=== PATIENT | female | born 1960 | race Caucasian/White ===

== ENCOUNTER 2021-01-07 21:54 | Observation (INO) | payer SELFPAY ==
[2021-01-07 23:14] LABS: #Basophils 0.1 10x3/uL (0.0-0.2); #Eosinphils 0.2 10x3/uL (0.0-0.5); #Monocytes 0.9 10x3/uL (0.0-1.1); #Neutrophils 7.9 10x3/uL (1.5-8.4); %Basophils 0.5 % (0.0-2.0); %Lymphocytes 21.4 % (18.0-47.0); %Monocytes 7.6 % (0.0-10.0); %Neutrophils 68.1 % (40.0-75.0); Hemoglobin 9.2 g/dL (12.0-15.5); Mean Corpuscular HGB CONC 32.6 g/dL (32.0-36.0); Mean Corpuscular Hemoglobin 29.2 pg (27.0-33.0); Mean Corpuscular Volume 89.5 fl (81.6-98.3); Mean Platelet Volume 10.7 fl (7.4-10.4); Platelet Count 322 10x3/uL (150-450); RBC Distribution Width 15.1 % (11.5-14.5); Red Blood Cell (RBC) Count 3.15 10x6/uL (3.90-5.03); White Blood Cell (WBC) Count 11.7 10x3/uL (3.5-10.5)
[2021-01-07 23:24] LABS: ALT (SGPT) 23 U/L (8-55); AST (SGOT) 28 U/L (5-34); Alkaline Phosphatase 50 U/L (40-110); Anion Gap 16 mmol/L (10-20); BUN (Urea Nitrogen) 31 mg/dL (9.8-20.1); Bilirubin, Total 0.4 mg/dL (0.2-1.2); Calc. Creatinine Clearance 0 mL/min (70-130); Calcium 9.3 mg/dL (7.8-10.44); Carbon Dioxide 24 mmol/L (23-31); Chloride 110 mmol/L (98-107); Globulin 2.9 g/dL (2.4-3.5); Glucose 230 mg/dL (80-115); Potassium 3.2 mmol/L (3.5-5.1); Protein, Total 6.9 g/dL (5.8-8.1); Sodium 147 mmol/L (136-145)
[2021-01-08] MEDS ORDERED: Potassium Chloride 20 MEQ TAB ONE (01:11)
[2021-01-08] MEDS ORDERED: Furosemide 40 MG/4 ML VIAL ONE (01:11)
[2021-01-08 03:24] VITALS: BMI 46.7
[2021-01-08 04:50] LABS: #Eosinphils 0.2 10x3/uL (0.0-0.5); #Monocytes 0.7 10x3/uL (0.0-1.1); #Neutrophils 6.8 10x3/uL (1.5-8.4); %Basophils 0.4 % (0.0-2.0); %Eosinophils 1.6 % (0.0-6.0); %Lymphocytes 20.2 % (18.0-47.0); %Monocytes 6.8 % (0.0-10.0); %Neutrophils 70.7 % (40.0-75.0); Hemoglobin 8.3 g/dL (12.0-15.5); Mean Corpuscular HGB CONC 32.4 g/dL (32.0-36.0); Mean Corpuscular Hemoglobin 29.7 pg (27.0-33.0); Mean Corpuscular Volume 91.8 fl (81.6-98.3); Mean Platelet Volume 11.2 fl (7.4-10.4); Platelet Count 269 10x3/uL (150-450); RBC Distribution Width 14.8 % (11.5-14.5); Red Blood Cell (RBC) Count 2.79 10x6/uL (3.90-5.03); White Blood Cell (WBC) Count 9.6 10x3/uL (3.5-10.5)
[2021-01-08 05:12] LABS: Troponin I 0.015 ng/mL (< 0.028)
[2021-01-08 05:18] LABS: Anion Gap 13 mmol/L (10-20); BUN (Urea Nitrogen) 29 mg/dL (9.8-20.1); Calc. Creatinine Clearance 62 mL/min (70-130); Calcium 8.8 mg/dL (7.8-10.44); Carbon Dioxide 25 mmol/L (23-31); Cardiac Risk 2.8 (Less than 4.5); Chloride 112 mmol/L (98-107); Cholesterol 125 mg/dl (< 200 Desired); Glucose 204 mg/dL (80-115); HDL Cholesterol 45 mg/dL (>60 Neg Risk); LDL Cholesterol, Calculated 60 mg/dL; Magnesium 2.1 mg/dL (1.6-2.6); Sodium 147 mmol/L (136-145); Triglycerides 98 mg/dL (Less than 150)
[2021-01-08 05:36] LABS: Potassium 2.9 mmol/L (3.5-5.1)
[2021-01-08 05:37] LABS: Ferritin 50.24 ng/mL (10-291); Thyroid Stimulating Hormone 2.6282 uIU/mL (0.35-4.94)
[2021-01-08] MEDS ORDERED: Potassium Chloride 20 MEQ TAB PO SCH ×2 (06:15→09:45)
[2021-01-08] MEDS ORDERED: hydrOXYzine 25 MG TAB PO PRN (07:00)
[2021-01-08] MEDS ORDERED: Furosemide 20 MG TAB PO SCH ×2 (09:00→09:45)
[2021-01-08] MEDS: glyBURIDE 5 MG TAB PO SCH ×2 (10:02→20:19)
[2021-01-08] MEDS: Levothyroxine Sodium 25 MCG TAB PO SCH (10:03)
[2021-01-08] MEDS: Carvedilol 12.5 MG TAB PO SCH ×2 (10:04→20:19)
[2021-01-08] MEDS: Amlodipine 10 MG TAB PO SCH (10:04)
[2021-01-08] MEDS: Famotidine 20 MG TAB PO SCH (10:04)
[2021-01-08] MEDS: Loratadine 10 MG TAB PO SCH (10:05)
[2021-01-08] MEDS: Atorvastatin Calcium 20 MG TAB PO SCH (10:05)
[2021-01-08] MEDS: Enoxaparin Sodium 30 MG/0.3 ML SYRINGE SC SCH (10:06)
[2021-01-08] MEDS: Acetaminophen 325 MG TAB PO PRN ×2 (10:11→17:55)
[2021-01-08 18:09] LABS: SARS-CoV-2 PCR by NAA Not Detected (NotDetected)
[2021-01-09] MEDS: Amlodipine 10 MG TAB PO SCH (07:57)
[2021-01-09] MEDS: Famotidine 20 MG TAB PO SCH (07:57)
[2021-01-09] MEDS: Atorvastatin Calcium 20 MG TAB PO SCH ×2 (07:57→08:00)
[2021-01-09] MEDS: Carvedilol 12.5 MG TAB PO SCH (07:57)
[2021-01-09] MEDS: glyBURIDE 5 MG TAB PO SCH (07:57)
[2021-01-09] MEDS: Enoxaparin Sodium 30 MG/0.3 ML SYRINGE SC SCH (07:58)
[2021-01-09] MEDS: Loratadine 10 MG TAB PO SCH (07:59)
[2021-01-09] MEDS: Levothyroxine Sodium 25 MCG TAB PO SCH (07:59)
[2021-01-09 10:04] LABS: Anion Gap 12 mmol/L (10-20); BUN (Urea Nitrogen) 26 mg/dL (9.8-20.1); Calc. Creatinine Clearance 67 mL/min (70-130); Carbon Dioxide 25 mmol/L (23-31); Chloride 112 mmol/L (98-107); Glucose 185 mg/dL (80-115); Potassium 3.7 mmol/L (3.5-5.1); Sodium 145 mmol/L (136-145)
[2021-01-09] MEDS ORDERED: Loperamide HCl 2 MG CAP PO SCH (12:30)
[2021-01-09 13:40] VITALS: BP 130/76; TEMP 97.6
== END 2021-01-09 14:45 | disposition home or self-care (01) ==
LOC: CSHERS 21:54 → CSHTELE 01-08 01:54
PROVIDERS: ADMIT Family Medicine; ATTEND Internal Medicine
DX: R55 Syncope and collapse (principal); E87.70 Fluid overload, unspecified; N17.9 Acute kidney failure, unspecified; N18.32 Chronic kidney disease, stage 3b; E11.22 Type 2 diabetes mellitus with diabetic chronic kidney disease; I12.9 Hypertensive chronic kidney disease with stage 1 through stage 4 chronic kidney disease, or unspecified chronic kidney disease; E78.5 Hyperlipidemia, unspecified; Z79.899 Other long term (current) drug therapy; D64.9 Anemia, unspecified; E87.6 Hypokalemia; E03.9 Hypothyroidism, unspecified; E66.01 Morbid (severe) obesity due to excess calories; Z20.822 Contact with and (suspected) exposure to COVID-19
CPT/HCPCS: 36415; 36416; 70450; 71045; 76770; 80048; 80053; 80061; 82274; 82607; 82728; 82746; 83036; 83735; 83880; 84443; 84484; 85025; 87635; 93005; 93306; 96372; G0378; J1650; J1940; U0003; U0005